=== PATIENT | female | born 1970 | race Caucasian/White ===

== ENCOUNTER → 2016-12-06 | Outpatient (CLI) | payer BC ==
[~2016-12-06] MED LIST: IBU600 MG PO; PERCOCET 325 MG1 TA2 PO; SYNTHROID0.05 MG/TA PO
== END ==
LOC: COL.RAD 10:00
DX: M50.223 Other cervical disc displacement at C6-C7 level (principal); M48.02 Spinal stenosis, cervical region; Z98.1 Arthrodesis status

== ENCOUNTER 2017-04-16 10:05 | Inpatient (IN) | payer BC ==
[2017-04-16] VITALS (11 sets, daily range): BP systolic 104–130; BP diastolic 55–75; PULSE 72–95; TEMP 97.9–98.4
[~2017-04-16] VITALS: Ht 168.9 cm; Wt 78.5 kg
[~2017-04-16 10:05] MED LIST changes: -IBU600 MG PO; -PERCOCET 325 MG1 TA2 PO
[2017-04-16] MEDS ORDERED: IBU600 MG PO (15:56)
[2017-04-16] MEDS ORDERED: PERCOCET 325 MG1 TA2 PO (15:56)
[2017-04-17 06:20] LABS: BASO % 0.4 % (0.0-2.0); GRAN # 6.4 (1.4-6.5); GRAN % 77.9 % (42.2-75.2); LYMPH # 1.1 (1.2-3.4); LYMPH % 13.6 % (20.0-51.0); MEAN CELL VOLUME 91 fl (80.0-100.0); MEAN CORPUSCULAR HGB CONC 33 g/dl (33.0-37.0); MEAN PLATELET VOLUME 10.2 fl (7.4-10.4); MONO # 0.6 (0.1-0.6); MONO % 7.7 % (1.7-9.3); PLATELET COUNT 263 K/mm3 (130-400); RED BLOOD COUNT 2.86 M/mm3 (4.10-5.30); REDCELL DISTRIBUTION WIDTH-CV 12.1 % (11.5-14.5); WHITE BLOOD COUNT 8.2 K/mm3 (4.8-10.8)
[2017-04-17 06:22] LABS: HEMOGLOBIN 8.6 g/dl (12.5-16.0); MEAN CORPUSCULAR HEMOGLOBIN 30 pg (27.0-31.0)
[2017-04-17 08:37] VITALS: BP 108/60; PULSE 79
== END 2017-04-17 09:40 | disposition home or self-care (01) | DRG 742 ==
LOC: INPTSU 10:05 → SURG 12:00 → OB 16:00
PROVIDERS: Obstetrics & Gynecology
PROC: 0UT9FZZ Resection of Uterus, Via Natural or Artificial Opening With Percutaneous Endoscopic Assistance (ICD-10-PCS; principal; 2017-04-16 12:00)
PROC: 0UT7FZZ Resection of Bilateral Fallopian Tubes, Via Natural or Artificial Opening With Percutaneous Endoscopic Assistance (ICD-10-PCS; 2017-04-16 12:00)
DX: N92.1 Excessive and frequent menstruation with irregular cycle (principal); D62 Acute posthemorrhagic anemia; E03.9 Hypothyroidism, unspecified; D25.0 Submucous leiomyoma of uterus; D25.1 Intramural leiomyoma of uterus; D05.82 Other specified type of carcinoma in situ of left breast; R93.8 Abnormal findings on diagnostic imaging of other specified body structures; Z80.3 Family history of malignant neoplasm of breast; Z88.0 Allergy status to penicillin; Z17.0 Estrogen receptor positive status [ER+]; Z98.1 Arthrodesis status
CPT/HCPCS: A4315; J0690; J1100; J1885; J2270; J2405; J2704; J2710; J3010; J7120

== ENCOUNTER → 2018-08-15 | Outpatient (CLI) | payer BC ==
[~2018-08-15] MED LIST changes: +IBU600 MG PO; +PERCOCET 325 MG1 TA2 PO
== END ==
LOC: MC.RAD 08-06 14:00
DX: Z12.31 Encounter for screening mammogram for malignant neoplasm of breast (principal); D05.12 Intraductal carcinoma in situ of left breast; Z98.890 Other specified postprocedural states; Z92.3 Personal history of irradiation

== ENCOUNTER → 2019-10-26 | Outpatient (CLI) | payer BC | LOC: MC.RAD 14:59 | DX: Z12.31 Encounter for screening mammogram for malignant neoplasm of breast (principal); Z98.890 Other specified postprocedural states ==

== ENCOUNTER → 2020-10-27 | Outpatient (CLI) | payer BC | LOC: MC.RAD 15:15 | DX: Z12.31 Encounter for screening mammogram for malignant neoplasm of breast (principal); Z98.890 Other specified postprocedural states; Z85.3 Personal history of malignant neoplasm of breast ==

== ENCOUNTER → 2022-03-01 | Outpatient (CLI) | payer BC | LOC: MC.RAD 07:06 | DX: Z12.31 Encounter for screening mammogram for malignant neoplasm of breast (principal); Z85.3 Personal history of malignant neoplasm of breast ==

== ENCOUNTER → 2024-03-31 | Outpatient (CLI) | payer BC | LOC: MC.RAD 09:49 | DX: Z12.31 Encounter for screening mammogram for malignant neoplasm of breast (principal); Z98.890 Other specified postprocedural states ==